=== PATIENT | female | born 1955 | race Native Hawaiian/Other Pacific Islander ===

== ENCOUNTER 2017-11-04 13:38 | Outpatient (CLI) | payer MEDICARE, OTHER ==
--- NOTE | 2017-11-04 19:27 | XRay Report ---
FINAL REPORT EXAM: XR HAND 3+V RT HISTORY: RIGHT HAND PAIN TECHNIQUE: AP, lateral, and oblique views of the right hand PRIORS: None. FINDINGS: There is no evidence for acute fracture or dislocation. No soft tissue swelling or radiopaque foreign bodies are seen. Bony mineralization is normal. Severe incomplete joint space narrowing at the radiocarpal joint and ulnar carpal joint is seen. There is re-formation and flattening of the distal radius. There is also fusion of the 1st and 2nd row of carpals. Findings suggest chronic degenerative change. IMPRESSION: No acute bony or soft tissue abnormality noted. 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
== END 2017-11-04 13:39 | disposition home or self-care (01) ==
LOC: SPVIMAG 13:38
PROVIDERS: ATTEND Orthopaedic Surgery Sports Medicine
DX: M19.041 Primary osteoarthritis, right hand (principal)